=== PATIENT | male | born 2000 | race Hispanic/Latino ===

== ENCOUNTER 2019-08-23 18:03 | Emergency (ER) | payer OTHER ==
[~2019-08-23] VITALS: Ht 165.1 cm; Wt 71.6 kg
[2019-08-23] MEDS ORDERED: ACETAMINOPHEN TAB 650MG DOSE (2X325MG) PO ONE (20:00)
[2019-08-23 20:26] LABS: INFLUENZA A AMPLIFICATION POSITIVE (NEGATIVE); INFLUENZA B AMPLIFICATION NEGATIVE (NEGATIVE)
[2019-08-23 20:43] VITALS: BP 128/62
[2019-08-23] MEDS ORDERED: OSEL75CA PO (21:54)
[2019-08-23] MEDS ORDERED: ONDA4TAB6 PO (21:54)
--- NOTE | 2019-08-24 05:39 | REP ---
Clinical: Shortness of breath and fever . Comparison: None . Technique: PA and lateral. Findings: The mediastinum and cardiac silhouette are normal. The lung smyth are clear and without acute consolidation, effusion, or pneumothorax. The skeletal structures are intact and normal. Impression: 1. No acute cardiopulmonary process. Electronically Signed by George Gonzalez MD 08/24/2019 05:31 A
== END 2019-08-23 22:04 | disposition home or self-care (01) ==
LOC: M ED 18:03
DX: J09.X2 Influenza due to identified novel influenza A virus with other respiratory manifestations (principal); R05 Cough; R09.81 Nasal congestion